=== PATIENT | female | born 1990 | race African-American/Black ===

== ENCOUNTER 2016-11-24 15:27 | Emergency (ER) | payer MEDICAID, OTHER ==
[~2016-11-24] VITALS: Ht 167.6 cm; Wt 80.0 kg
[~2016-11-24 15:27] MED LIST: CEPH250T; SULF-165
[2016-11-24] MEDS ORDERED: ONDANSETRON HCL 4MG/2ML VIAL IV STA (16:26)
[2016-11-24] MEDS ORDERED: KETOROLAC 30MG/ML VIAL IV STA (16:26)
[2016-11-24] MEDS ORDERED: SODIUM CHLORIDE 0.9% 1,000 ML IV ONE ×2 (16:26→18:15)
[2016-11-24 16:47] LABS: BASOPHILS % 0.6 % (0.0-2.0); EOSINOPHILS % 0.1 % (0.0-5.0); HEMATOCRIT. 39.1 % (36.0-48.0); HEMOGLOBIN. 13.6 g/dL (12.0-16.0); LYMPHOCYTES % 9.8 % (20.0-50.0); MEAN CORPUSCULAR HGB CONC 34.9 g/dL (31.0-37.0); MEAN CORPUSCULAR VOLUME 91.7 fL (81.0-99.0); MEAN PLATELET VOLUME 9.8 fl (7.4-10.4); MONOCYTES % 6.6 % (2.0-8.0); NEUTROPHILS % 82.9 % (40.0-76.0); PLATELET 202 x1000/uL (130-400); RED BLOOD CELL COUNT 4.26 mill/uL (4.2-5.4); WHITE BLOOD COUNT 13.6 x1000/uL (4.5-11.0)
[2016-11-24 16:52] LABS: CHLORIDE 109 mEq/L (98-107); INDEX HEMOLYSI 1 (1-3); INDEX ICTERIC 1 (1-4); INDEX LIPEMIC 1 (1-3)
[2016-11-24 16:56] LABS: INR 1.1; PROTHROMBIN TIME 11.4 sec
[2016-11-24 16:57] LABS: ALBUMIN 3.9 g/dL (3.4-5.0); ANION GAP 16; CALCIUM 9.2 mg/dL (8.5-10.1); CARBON DIOXIDE 21 mEq/L (21-32); LIPASE 82 IU/L (73-393); UREA NITROGEN BLOOD 12 mg/dL (7-21)
[2016-11-24 17:01] LABS: ALANINE AMINOTRANSFERASE 29 IU/L (13-61); eGFR > 60 mL/min (>60)
[2016-11-24 18:09] LABS: CLARITY URINE CLOUDY (CLEAR); COLOR URINE YELLOW (YELLOW); GLUCOSE URINE NEGATIVE (NEGATIVE); KETONES URINE 1+ (NEGATIVE); LEUKOCYTE ESTERASE URINE 1+ (NEGATIVE); NITRITE URINE NEGATIVE (NEGATIVE); OCCULT BLOOD URINE NEGATIVE (NEGATIVE); PH URINE >=9.0 (4.5-8.0); PROTEIN URINE TRACE (NEGATIVE); SPECIFIC GRAVITY URINE 1.019 (1.005-1.030)
[2016-11-24] MEDS ORDERED: ONDANSETRON HCL 4MG/2ML VIAL IV ONE (18:15)
[2016-11-24 18:30] LABS: SQUAMOUS EPITHELIAL CELL URINE 2+ /lpf (RARE/1+)
[2016-11-24 18:33] LABS: BACTERIA URINE 1+; RBC URINE 0-2 /hpf (0-2)
[2016-11-24] MEDS ORDERED: METOCLOPRAMIDE HCL 10MG/2ML VIAL IV ONE (18:45)
[2016-11-24] MEDS ORDERED: MORPHINE SULFATE 4 MG/ML CPJ (NOT FOR IM USE) IV ONE (18:45)
[2016-11-24 19:26] VITALS: BP 112/60
== END 2016-11-24 21:01 | disposition left against medical advice (07) ==
LOC: ER 16:29
DX: N39.0 Urinary tract infection, site not specified (principal); R11.2 Nausea with vomiting, unspecified; F12.10 Cannabis abuse, uncomplicated; Z79.899 Other long term (current) drug therapy
CPT/HCPCS: 36415; 76705; 80053; 81001; 81025; 83690; 85025; 85610; 96361; 96374; 96375; 96376; 99285; J1885; J2270; J2405; J2765; J7030

== ENCOUNTER 2017-09-18 07:41 | Emergency (ER) | payer OTHER ==
[~2017-09-18] VITALS: Ht 162.6 cm; Wt 86.0 kg
[2017-09-18] MEDS ORDERED: ABIL10 PO (07:51)
[2017-09-18] MEDS ORDERED: SERT50TA PO (07:51)
[2017-09-18] MEDS ORDERED: ACETAMINOPHEN 500MG TABLET PO ONE (09:00)
[2017-09-18] MEDS ORDERED: VISCOUS LIDOCAINE 2% 15 ML UDC MM PRN (09:00)
[2017-09-18 09:11] VITALS: BP 120/59
== END 2017-09-18 09:17 | disposition home or self-care (01) ==
LOC: ER 07:41
DX: J02.9 Acute pharyngitis, unspecified (principal); F12.90 Cannabis use, unspecified, uncomplicated; Z71.89 Other specified counseling
CPT/HCPCS: 99284

== ENCOUNTER 2017-09-27 06:59 | Emergency (ER) | payer OTHER ==
[~2017-09-27] VITALS: Ht 162.6 cm; Wt 86.0 kg
[~2017-09-27 06:59] MED LIST changes: +ABIL10 PO; +SERT50TA PO
[2017-09-27] MEDS: VISCOUS LIDOCAINE 2% 15 ML UDC MM PRN (08:40)
[2017-09-27 09:25] VITALS: BP 127/81
== END 2017-09-27 10:18 | disposition home or self-care (01) ==
LOC: ER 07:15
DX: J06.9 Acute upper respiratory infection, unspecified (principal); F12.10 Cannabis abuse, uncomplicated; Z98.890 Other specified postprocedural states
CPT/HCPCS: 71045; 81025; 87070; 87430; 99285

== ENCOUNTER 2020-02-09 21:32 | Emergency (ER) | payer OTHER ==
[~2020-02-09] VITALS: Ht 165.1 cm; Wt 68.0 kg
[~2020-02-09 21:32] MED LIST changes: +DIPH25CA83 PO; +TRAZ-252 PO
[2020-02-09] MEDS ORDERED: ONDANSETRON HCL 4MG/2ML INJ IV STA (22:51)
[2020-02-09] MEDS ORDERED: KETOROLAC 30MG/ML VIAL IV STA (22:51)
[2020-02-09] MEDS ORDERED: SODIUM CHLORIDE 0.9% 1,000 ML IV ONE (22:51)
[2020-02-09 23:08] LABS: CHLORIDE 108 mEq/L (98-107)
[2020-02-09 23:10] LABS: HEMOGLOBIN. 14.2 g/dL (12.0-16.0); MEAN CORPUSCULAR HEMOGLOBIN 33.6 pg (28.0-32.0); MEAN CORPUSCULAR VOLUME 94.4 fL (81.0-99.0); MEAN PLATELET VOLUME 10.6 fl (7.4-10.4); PLATELET 198 x1000/uL (130-400); RED BLOOD CELL COUNT 4.23 mill/uL (4.2-5.4); RED CELL DISTRIBUTION WIDTH 12.7 % (11.6-14.6)
[2020-02-10 00:08] LABS: PLATELET ESTIMATE NORMAL
[2020-02-10 00:59] LABS: HCG SCREEN NEGATIVE
[2020-02-10 01:07] LABS: CLARITY URINE CLOUDY (CLEAR); COLOR URINE YELLOW (YELLOW); KETONES URINE 1+ (NEGATIVE); LEUKOCYTE ESTERASE URINE NEGATIVE (NEGATIVE); NITRITE URINE NEGATIVE (NEGATIVE); OCCULT BLOOD URINE NEGATIVE (NEGATIVE); PROTEIN URINE NEGATIVE (NEGATIVE); SPECIFIC GRAVITY URINE 1.019 (1.005-1.030); UROBILINOGEN URINE 0.2 E.U./dL (0.2-1.0)
[2020-02-10 01:32] VITALS: BP 106/59
== END 2020-02-10 03:50 | disposition home or self-care (01) ==
LOC: ER 21:32
DX: R10.9 Unspecified abdominal pain (principal); R11.2 Nausea with vomiting, unspecified; Z79.899 Other long term (current) drug therapy
CPT/HCPCS: 36415; 74176; 76705; 80053; 81003; 83690; 84703; 85025; 96361; 96374; 96375; 99285; J1885; J2405; J7030